=== PATIENT | female | born 1940 | race Caucasian/White ===

== ENCOUNTER 2022-02-26 00:30 | Inpatient (IN) | payer BC, MEDICAID ==
[~2022-02-26] VITALS: Ht 147.3 cm; Wt 39.1 kg
[2022-02-26] VITALS (13 sets, daily range): BP systolic 62–166; BP diastolic 33–100
[2022-02-26] MEDS ORDERED: normal saline 1000ML IV soln IVB ONE (00:45)
[2022-02-26] MEDS ORDERED: acetaminophen 325mg tablet PO ONE (01:35)
[2022-02-26] MEDS ORDERED: piperacillin/tazo 3.375gm/50ml 50 ML IV ONE (01:40)
[2022-02-26 01:49] LABS: BASOPHILS % (AUTO) 0.1 % (0-1); EOSINOPHILS % (AUTO) 0 % (0-6); HEMATOCRIT 35.9 % (35.0-45.0); LYMPHOCYTES # (AUTO) 0.6 X10'3 (1.1-4.8); LYMPHOCYTES % (AUTO) 3.2 % (21-51); MEAN CORPUSCULAR HEMOGLOBIN 29.8 PG (27.0-31.0); MEAN CORPUSCULAR HGB CONC 33.5 g/dL (33.0-36.5); MEAN CORPUSCULAR VOLUME 88.9 FL (78-98); MEAN PLATELET VOLUME 7.6 FL (7.4-10.4); MONOCYTES # (AUTO) 1.5 X10'3 (0-0.9); NEUTROPHILS % (AUTO) 88.7 % (42-75); PLATELET COUNT 227 X10'3 (140-440); RED BLOOD COUNT 4.04 X10'6 (4.20-5.60); RED CELL DISTRIBUTION WIDTH 13.7 % (11.5-14.5); WHITE BLOOD COUNT 19.2 X10'3 (4.5-11.0)
[2022-02-26 01:54] LABS: CLARITY,URINE SLIGHTLY CLOUDY (Clear); COLOR,URINE YELLOW (Yellow); GLUCOSE, URINE NEGATIVE (Neg); KETONES,URINE NEGATIVE (Neg); LEUKOCYTE ESTERASE ,URINE LARGE (Neg); NITRITES, URINE POSITIVE (Neg); OCCULT BLOOD,URINE SMALL (Neg); PROTEIN,URINE NEGATIVE (Neg); UROBILINOGEN,URINE 0.2 E.U/dL (0.2-1.0)
[2022-02-26 01:56] LABS: ALANINE AMINOTRANSFERASE 21 U/L (12-78); ALBUMIN 3.3 G/DL (3.4-5.0); ALBUMIN/GLOBULIN RATIO 0.9 (1.1-1.5); ALKALINE PHOSPHATASE 78 IU/L (46-116); ANION GAP 4 (8-16); ASPARTATE AMINO TRANSFERASE 28 U/L (10-37); BILIRUBIN,TOTAL 0.5 MG/DL (0.1-1.0); BLOOD UREA NITROGEN 17 MG/DL (7-18); CHLORIDE 95 MMOL/L (99-107); CREATININE 0.85 MG/DL (0.40-0.90); GLUCOSE 105 MG/DL (70-104); MAGNESIUM 1.6 MG/DL (1.5-2.4); POTASSIUM 4.6 MMOL/L (3.5-5.1); SODIUM 125 MMOL/L (135-145); TOTAL CARBON DIOXIDE 26.3 MMOL/L (24-32); eGFR 64 ML/MIN
[2022-02-26 02:01] LABS: UA COLLECTION TYPE NON-SPECIFIED
[2022-02-26 02:10] LABS: BACTERIA,URINE 4+ /HPF (Neg); MUCUS STRANDS NONE SEEN /LPF (Neg); RBC,URINE NONE SEEN /HPF (0-2); SQUAMOUS EPITHELIAL CELL,UR FEW /LPF (FEW); WBC,URINE 50-100 /HPF (0-4)
[2022-02-26] MEDS ORDERED: magnesium Cl slow-release 64mg tablet PO PRN (03:05)
[2022-02-26] MEDS ORDERED: ondansetron/PF 4mg/2ml inj IV PRN (03:05)
[2022-02-26] MEDS ORDERED: potassium Cl 40MEQ/1/2NS 520ml 520 ML IV PRN (03:05)
[2022-02-26] MEDS ORDERED: magnesium 4gm in 100ml NS 100 ML IV PRN (03:05)
[2022-02-26] MEDS ORDERED: potassium Cl 20 mEq SR tablet PO PRN ×2 (03:05)
[2022-02-26] MEDS ORDERED: acetaminophen 325mg tablet PO PRN (03:05)
[2022-02-26] MEDS ORDERED: OMEP20CA16 PO (03:46)
[2022-02-26] MEDS ORDERED: ATOR40TA71 PO (03:46)
[2022-02-26] MEDS ORDERED: TIOT4MIS3 INH (03:46)
[2022-02-26] MEDS ORDERED: LISI10TA27 PO (03:46)
[2022-02-26] MEDS ORDERED: ASPI-1144 PO (03:46)
[2022-02-26] MEDS ORDERED: NICO-630 TP (03:46)
[2022-02-26] MEDS ORDERED: CLOP75TA34 PO (03:46)
[2022-02-26] MEDS ORDERED: ALBU6.7H14 IH (03:46)
[2022-02-26] MEDS ORDERED: levoFLOXACIN-Levaquin 500mg/D5 100 ML IV SCH (04:00)
[2022-02-26] MEDS: normal saline 1000ml 1,000 ML IV SCH ×3 (04:36→22:03)
--- NOTE | 2022-02-26 06:45 | NUR ---
Pt arrived from ED with HOTM. Procured new BP cuff and performed recheck. RN to notify auto adjudication specialist .
--- NOTE | 2022-02-26 06:55 | NUR ---
Notified Dr Gutierrez: Debra [id number]. Pt arrived from ED with HOTN (60s/30s). Procured new BP cuff and performed recheck. BP 102/46, MAP 64, HR 87. IVF running at 100ml/hr. Please advise if you would like a bolus. Stephanie Giraldo Addendum: 02/26/22 at 09 by Stephanie Marcelo RN Notified Dr Gutierrez. ALLIE Richardson [id number]. Administered 500ml bolus, now BP 132/66, MAP 80, HR 94 after 1 hour. Saturated brief, no longer oliguric. Stephanie Giraldo Addendum: 02/26/22 at 922 by Stephanie Marcelo RN 922: Debra 23C. Pt tachypnic RR 28, HR 130s, BP 166/84 Map 120. O2 99 on 2.5L. Please advise. Should I call a LOCKSTITCHER? Stephanie [phone] Addendum: 02/26/22 at 1101 by Stephanie Marcelo RN Dr Gutierrez updated on current VS
[2022-02-26] MEDS ORDERED: dextrose 5% water 500ml 500 ML IV ONE (07:35)
[2022-02-26] MEDS ORDERED: normal saline 500ml IV soln 500 ML IV ONE (07:45)
[2022-02-26] MEDS ORDERED: CefTRIAXone/D5W-Rocephin 1gm 50 ML IV SCH (08:00)
[2022-02-26] MEDS: K and/or MAG REPLACEMENT MC SCH ×2 (08:00→20:00)
[2022-02-26 10:42] LABS: BASOPHILS % (AUTO) 0.1 % (0-1); EOSINOPHILS % (AUTO) 0 % (0-6); HEMATOCRIT 33.6 % (35.0-45.0); HEMOGLOBIN 10.6 g/dl (12.0-16.0); LYMPHOCYTES # (AUTO) 0.5 X10'3 (1.1-4.8); LYMPHOCYTES % (AUTO) 2.1 % (21-51); MEAN CORPUSCULAR HEMOGLOBIN 29.3 PG (27.0-31.0); MEAN CORPUSCULAR HGB CONC 31.6 g/dL (33.0-36.5); MEAN CORPUSCULAR VOLUME 92.9 FL (78-98); MEAN PLATELET VOLUME 7.3 FL (7.4-10.4); MONOCYTES # (AUTO) 1.5 X10'3 (0-0.9); MONOCYTES % (AUTO) 6.4 % (2-12); NEUTROPHILS # (AUTO) 21.4 X10'3 (1.8-7.7); NEUTROPHILS % (AUTO) 91.4 % (42-75); PLATELET COUNT 180 X10'3 (140-440); RED BLOOD COUNT 3.62 X10'6 (4.20-5.60); RED CELL DISTRIBUTION WIDTH 14.2 % (11.5-14.5); WHITE BLOOD COUNT 23.4 X10'3 (4.5-11.0)
[2022-02-26 11:05] LABS: ALANINE AMINOTRANSFERASE 19 U/L (12-78); ALBUMIN 2.7 G/DL (3.4-5.0); ALBUMIN/GLOBULIN RATIO 0.8 (1.1-1.5); ALKALINE PHOSPHATASE 58 IU/L (46-116); ANION GAP 11 (8-16); ASPARTATE AMINO TRANSFERASE 28 U/L (10-37); BILIRUBIN,TOTAL 0.6 MG/DL (0.1-1.0); BLOOD UREA NITROGEN 12 MG/DL (7-18); BUN/CREATININE RATIO 16.7 (6.6-38.0); CALCIUM 7.7 MG/DL (8.5-10.1); CHLORIDE 98 MMOL/L (99-107); CREATININE 0.72 MG/DL (0.40-0.90); GLUCOSE 107 MG/DL (70-104); SODIUM 126 MMOL/L (135-145); TOTAL CARBON DIOXIDE 17.2 MMOL/L (24-32); TOTAL PROTEIN 5.9 G/DL (6.4-8.2); eGFR 78 ML/MIN
[2022-02-26 11:32] LABS: HYPERSEGMENTED NEUTROPHILS 2+; PLATELET ESTIMATE NORMAL; TOTAL CELLS COUNTED 100
[2022-02-26 11:33] LABS: ANISOCYTOSIS FEW; BURR CELLS FEW; ELLIPTOCYTES FEW
--- NOTE | 2022-02-26 13:17 | NUR ---
Initial: Pt admit DX sepsis, UTI, hyponatremia, and metabolic encephalopathy per EMR. Pt NPO pending DRAWING OPERATOR BSS this admit. Noted BMI 18.0 though pending scaled wt this admit w/ no prior wt hx or physical assessment at this time. Serum Na 126mmol/L up from 125 on admit receiving NS per EMR; would benefit from advancing to regular diet once PO given serum Na and episodes of hypotension per EMR. Will monitor for further malnutrition criteria and nutrition intervention needs this admit. Rec: 1. advance diet per DRAWING OPERATOR/MD recs to regular; serum Na 126 mmol/L w/ episodes of hypotension on IV NS per EMR 2. monitor for diet advancement and PO acceptance for ONS needs 3. routine bowel care 4. scaled wt this admit; subsequent weekly wts Addendum: 02/26/22 at [address] Amended: Links added.
--- NOTE | 2022-02-26 16:31 | NUR ---
Notified Dr Gutierrez: Debra 23C. FYI Blood cultures positive at 12.5 hours Anaerobic Gram Negative Rods. Stephanie [phone] Addendum: 02/26/22 at 1654 by Stephanie Marcelo RN Called Darlene [phone] and answered phone stating "there is no Darlene at this number" and call was disconnected. This RN contacted Dr Gutierrez. This RN also attempted to reach [facility] to reach a sales donor recruitment representative that might have additional contact/ emergency numbers on file for pt; [facility] was after business hours and gear hobber set up operator not available.
[2022-02-26] MEDS ORDERED: albuterol 2.5 MG/3 ML nebule NEB PRN (16:50)
[2022-02-27 02:00] VITALS: BP 159/65
[2022-02-27 07:00] VITALS: BP 163/62
[2022-02-27 07:17] LABS: BASOPHILS % (AUTO) 0.2 % (0-1); EOSINOPHILS % (AUTO) 0 % (0-6); HEMATOCRIT 40.6 % (35.0-45.0); HEMOGLOBIN 12.6 g/dl (12.0-16.0); LYMPHOCYTES # (AUTO) 0.9 X10'3 (1.1-4.8); LYMPHOCYTES % (AUTO) 5.9 % (21-51); MEAN CORPUSCULAR HEMOGLOBIN 29.6 PG (27.0-31.0); MEAN CORPUSCULAR VOLUME 95.6 FL (78-98); MEAN PLATELET VOLUME 7.6 FL (7.4-10.4); MONOCYTES # (AUTO) 1.8 X10'3 (0-0.9); MONOCYTES % (AUTO) 11.3 % (2-12); NEUTROPHILS # (AUTO) 13.2 X10'3 (1.8-7.7); NEUTROPHILS % (AUTO) 82.6 % (42-75); PLATELET COUNT 151 X10'3 (140-440); RED BLOOD COUNT 4.24 X10'6 (4.20-5.60)
[2022-02-27] MEDS: K and/or MAG REPLACEMENT MC SCH ×2 (08:00→20:00)
[2022-02-27] MEDS ORDERED: (Tiotropium Br/Olodaterol HCl (Stiolto Respimat Inhal Spray) 2 PUFFS) IH SCH (08:00)
[2022-02-27] MEDS: normal saline 1000ml 1,000 ML IV SCH ×2 (09:05→17:14)
[2022-02-27 09:27] LABS: ALBUMIN 3.2 G/DL (3.4-5.0); ANION GAP 15 (8-16); BLOOD UREA NITROGEN 9 MG/DL (7-18); BUN/CREATININE RATIO 12.3 (6.6-38.0); CALCIUM 8.8 MG/DL (8.5-10.1); CHLORIDE 100 MMOL/L (99-107); CREATININE 0.73 MG/DL (0.40-0.90); GLUCOSE 56 MG/DL (70-104); POTASSIUM 3.6 MMOL/L (3.5-5.1); SODIUM 132 MMOL/L (135-145); TOTAL CARBON DIOXIDE 16.8 MMOL/L (24-32); eGFR 77 ML/MIN
[2022-02-27] MEDS: piperacillin/tazo 3.375gm/50ml 50 ML IV SCH ×3 (09:54→23:43)
[2022-02-27] MEDS: atorvastatin 20mg tablet PO SCH (09:55)
[2022-02-27] MEDS: clopidogrel 75mg tablet PO SCH (09:55)
[2022-02-27] MEDS: levoFLOXACIN-Levaquin 250mg/D5 50 ML IV SCH (09:55)
[2022-02-27] MEDS: aspirin 81mg tab.chew PO SCH (09:55)
[2022-02-27] MEDS ORDERED: LIDOcaine 2% 10ml TOPICAL JELLY (Urojet) TP ONE (10:50)
--- NOTE | 2022-02-27 10:54 | NUR ---
Paged [facility] RN: Debra 3023C. Please start IV, lost access, any gauge is okay. Stephanie [phone] Addendum: 02/27/22 at 1155 by Stephanie Marcelo RN 1155: Paged Dr Neff: Debra Kothari [id number]. Unable to reach family/caregiver for home med Stiolto 2U. Had to cancel per pharmacy non-formulary. Do you have replacement order? Stephanie [phone] Addendum: 02/27/22 at 1449 by Stephanie Marcelo RN Scanner broken, unable to scan meds appropriately.
[2022-02-27 13:20] VITALS: BP 120/45
[2022-02-27 18:00] VITALS: BP 135/63
[2022-02-28 02:00] VITALS: BP 110/50
[2022-02-28] MEDS: normal saline 1000ml 1,000 ML IV SCH ×2 (05:05→15:05)
[2022-02-28 06:00] VITALS: BP 143/98
--- NOTE | 2022-02-28 06:30 | NUR ---
Patient in room PCU 3023C. I have received report from Ally AZEVEDO and had the opportunity to ask questions and assume patient care.
[2022-02-28 07:04] LABS: HEMATOCRIT 31.6 % (35.0-45.0); HEMOGLOBIN 10.9 g/dl (12.0-16.0); MEAN CORPUSCULAR HEMOGLOBIN 30.6 PG (27.0-31.0); MEAN CORPUSCULAR VOLUME 88.6 FL (78-98); RED BLOOD COUNT 3.56 X10'6 (4.20-5.60); WHITE BLOOD COUNT 9.1 X10'3 (4.5-11.0)
[2022-02-28 07:05] LABS: BASOPHILS % (AUTO) 0.3 % (0-1); EOSINOPHILS % (AUTO) 0.3 % (0-6); MEAN CORPUSCULAR HGB CONC 34.5 g/dL (33.0-36.5); MEAN PLATELET VOLUME 7.5 FL (7.4-10.4); MONOCYTES # (AUTO) 1.3 X10'3 (0-0.9); MONOCYTES % (AUTO) 14.1 % (2-12); NEUTROPHILS # (AUTO) 6.8 X10'3 (1.8-7.7); NEUTROPHILS % (AUTO) 74.3 % (42-75); PLATELET COUNT 166 X10'3 (140-440); RED CELL DISTRIBUTION WIDTH 13.7 % (11.5-14.5)
[2022-02-28] MEDS: K and/or MAG REPLACEMENT MC SCH ×2 (08:00→19:36)
[2022-02-28 08:11] LABS: ALBUMIN 2.7 G/DL (3.4-5.0); ANION GAP 6 (8-16); BLOOD UREA NITROGEN 10 MG/DL (7-18); BUN/CREATININE RATIO 12.3 (6.6-38.0); CALCIUM 8.1 MG/DL (8.5-10.1); CHLORIDE 100 MMOL/L (99-107); CREATININE 0.81 MG/DL (0.40-0.90); GLUCOSE 106 MG/DL (70-104); POTASSIUM 3.1 MMOL/L (3.5-5.1); SODIUM 132 MMOL/L (135-145); TOTAL CARBON DIOXIDE 25.6 MMOL/L (24-32); eGFR 68 ML/MIN
--- NOTE | 2022-02-28 09:29 | NUR ---
Taco Consult: Taco Bernardo w/ skin intact per EMR. Addendum: 02/28/22 at [address] Amended: Links added.
[2022-02-28] MEDS: aspirin 81mg tab.chew PO SCH (09:40)
[2022-02-28] MEDS: atorvastatin 20mg tablet PO SCH (09:40)
[2022-02-28] MEDS: levoFLOXACIN-Levaquin 250mg/D5 50 ML IV SCH (09:41)
[2022-02-28] MEDS: clopidogrel 75mg tablet PO SCH (09:41)
[2022-02-28 11:00] VITALS: BP 141/68
[2022-02-28] MEDS: piperacillin/tazo 3.375gm/50ml 50 ML IV SCH ×2 (11:03→16:42)
[2022-02-28 15:00] VITALS: BP 141/53
[2022-02-28 18:00] VITALS: BP 160/65
--- NOTE | 2022-02-28 18:31 | NUR ---
Problems reprioritized. Patient report given, questions answered & plan of care reviewed with Edgar AZEVEDO.
[2022-02-28 23:02] VITALS: BP 149/56
[2022-03-01] MEDS: normal saline 1000ml 1,000 ML IV SCH ×3 (00:35→15:25)
[2022-03-01] MEDS: piperacillin/tazo 3.375gm/50ml 50 ML IV SCH ×2 (00:35→07:58)
[2022-03-01 02:08] VITALS: BP 137/61
[2022-03-01 06:00] VITALS: BP 155/61
[2022-03-01 06:31] LABS: BASOPHILS % (AUTO) 0.5 % (0-1); EOSINOPHILS # (AUTO) 0.2 X10'3 (0-0.9); EOSINOPHILS % (AUTO) 1.8 % (0-6); HEMATOCRIT 33.6 % (35.0-45.0); HEMOGLOBIN 11.3 g/dl (12.0-16.0); LYMPHOCYTES # (AUTO) 1.6 X10'3 (1.1-4.8); LYMPHOCYTES % (AUTO) 16.6 % (21-51); MEAN CORPUSCULAR HEMOGLOBIN 30.3 PG (27.0-31.0); MEAN CORPUSCULAR HGB CONC 33.7 g/dL (33.0-36.5); MEAN CORPUSCULAR VOLUME 89.8 FL (78-98); MEAN PLATELET VOLUME 7.6 FL (7.4-10.4); MONOCYTES # (AUTO) 1.7 X10'3 (0-0.9); MONOCYTES % (AUTO) 16.9 % (2-12); NEUTROPHILS # (AUTO) 6.3 X10'3 (1.8-7.7); NEUTROPHILS % (AUTO) 64.2 % (42-75); PLATELET COUNT 170 X10'3 (140-440); RED BLOOD COUNT 3.74 X10'6 (4.20-5.60); RED CELL DISTRIBUTION WIDTH 13.7 % (11.5-14.5); WHITE BLOOD COUNT 9.9 X10'3 (4.5-11.0)
--- NOTE | 2022-03-01 06:31 | NUR ---
Patient in room PCU 3023. I have received report from Edgar AZEVEDO and had the opportunity to ask questions and assume patient care. Bedside report completed. Pt sleeping, No distress, Call light in reach. Addendum: 03/01/22 at 0632 by Maya Ambrocio RN Amended: Links added.
[2022-03-01 06:49] LABS: ALANINE AMINOTRANSFERASE 45 U/L (12-78); ALBUMIN 2.4 G/DL (3.4-5.0); ALBUMIN/GLOBULIN RATIO 0.7 (1.1-1.5); ALKALINE PHOSPHATASE 59 IU/L (46-116); ANION GAP 6 (8-16); ASPARTATE AMINO TRANSFERASE 55 U/L (10-37); BILIRUBIN,TOTAL 0.3 MG/DL (0.1-1.0); BLOOD UREA NITROGEN 6 MG/DL (7-18); BUN/CREATININE RATIO 7.7 (6.6-38.0); CALCIUM 7.7 MG/DL (8.5-10.1); CHLORIDE 103 MMOL/L (99-107); CREATININE 0.78 MG/DL (0.40-0.90); GLUCOSE 90 MG/DL (70-104); MAGNESIUM 1.6 MG/DL (1.5-2.4); PHOSPHORUS 2.1 MG/DL (2.3-4.5); SODIUM 134 MMOL/L (135-145); TOTAL CARBON DIOXIDE 24.6 MMOL/L (24-32); TOTAL PROTEIN 5.7 G/DL (6.4-8.2); eGFR 71 ML/MIN
--- NOTE | 2022-03-01 07:04 | NUR ---
essage: 3023C [facility]. K+ 3.0. Will replace per protocol. Maya LIU
[2022-03-01] MEDS ORDERED: magnesium 4gm in 100ml NS 100 ML IV PRN (07:10)
[2022-03-01] MEDS ORDERED: potassium Cl 20 mEq SR tablet PO PRN (07:10)
[2022-03-01] MEDS ORDERED: potassium Cl 40MEQ/1/2NS 520ml 520 ML IV PRN (07:10)
[2022-03-01] MEDS ORDERED: magnesium Cl slow-release 64mg tablet PO PRN (07:10)
[2022-03-01] MEDS: potassium Cl 20 mEq SR tablet PO PRN ×3 (07:59→17:23)
[2022-03-01] MEDS: clopidogrel 75mg tablet PO SCH (07:59)
[2022-03-01] MEDS: levoFLOXACIN-Levaquin 250mg/D5 50 ML IV SCH (07:59)
[2022-03-01] MEDS: atorvastatin 20mg tablet PO SCH (07:59)
[2022-03-01] MEDS: aspirin 81mg tab.chew PO SCH (07:59)
[2022-03-01] MEDS: K and/or MAG REPLACEMENT MC SCH ×2 (08:00→19:06)
--- NOTE | 2022-03-01 09:42 | NUR ---
Reassessment: Pt s/p BSS with ST recs pureed food with thin liquids d/t difficulty chewing. PO intake slightly fluctuates however overall pt eating well, documented with average 58% PO intake of 5 meals which meets 100% estimated energy needs and 82% estimated protein needs. Since diet was advanced pt documented to have refused one meal and only with 100% PO intake of milk at breakfast this morning however documented to have consumed 49 g CHO so pt likely ate more. Pt receiving assistance with meals per EMR. LBM 02/26, not receiving bowel care. Unable to send nutrition intervention to assist with bowel regularity at this time d/t prune juice currently out of stock and other options not appropriate in view of texture modification. Will continue to follow. Recommendations: 1. Continue pureed diet with thin liquids per ST recs; advance to regular diet as appropriate; assist with meals 2. Monitor need for ONS 3. Routine bowel care 4. Scaled wt this admit; subsequent weekly scaled wts Addendum: 03/01/22 at [address] Amended: Links added.
[2022-03-01 10:36] LABS: NUCLEATED RED BLOOD CELLS 3 /100WBC (0-0); PLATELET ESTIMATE NORMAL; TOTAL CELLS COUNTED 100
[2022-03-01 10:53] VITALS: BP 145/60
[2022-03-01] MEDS: meropenem inj 500 MG in normal saline 100ml IV soln 100 ML IV SCH ×2 (14:35→19:31)
[2022-03-01 15:45] VITALS: BP 121/62
[2022-03-01 18:00] VITALS: BP 151/91
--- NOTE | 2022-03-01 18:12 | NUR ---
Problems reprioritized. Patient report given, questions answered & plan of care reviewed with Edgar AZEVEDO. Bedside report completed. Pt relaxing eating dinner. Addendum: 03/01/22 at 1813 by Maya Ambrocio RN Amended: Links added.
[2022-03-01] MEDS ORDERED: furosemide 40mg/4ml inj IV ONE (21:25)
[2022-03-01 22:39] VITALS: BP 189/82
[2022-03-01] MEDS ORDERED: hydrALAZINE 20mg/ml inj. IV ONE (23:35)
[2022-03-02] VITALS (8 sets, daily range): BP systolic 112–192; BP diastolic 53–68
[2022-03-02] MEDS: meropenem inj 500 MG in normal saline 100ml IV soln 100 ML IV SCH ×3 (02:18→19:04)
[2022-03-02 05:42] LABS: BASOPHILS # (AUTO) 0.1 X10'3 (0-0.2); BASOPHILS % (AUTO) 0.6 % (0-1); EOSINOPHILS # (AUTO) 0.1 X10'3 (0-0.9); EOSINOPHILS % (AUTO) 0.9 % (0-6); HEMATOCRIT 36.8 % (35.0-45.0); HEMOGLOBIN 12.3 g/dl (12.0-16.0); LYMPHOCYTES % (AUTO) 18.7 % (21-51); MEAN CORPUSCULAR HEMOGLOBIN 29.6 PG (27.0-31.0); MEAN CORPUSCULAR HGB CONC 33.4 g/dL (33.0-36.5); MEAN CORPUSCULAR VOLUME 88.7 FL (78-98); MEAN PLATELET VOLUME 7.2 FL (7.4-10.4); MONOCYTES # (AUTO) 1.6 X10'3 (0-0.9); MONOCYTES % (AUTO) 15.1 % (2-12); NEUTROPHILS # (AUTO) 6.8 X10'3 (1.8-7.7); NEUTROPHILS % (AUTO) 64.7 % (42-75); PLATELET COUNT 221 X10'3 (140-440); RED BLOOD COUNT 4.15 X10'6 (4.20-5.60); RED CELL DISTRIBUTION WIDTH 13.7 % (11.5-14.5); WHITE BLOOD COUNT 10.6 X10'3 (4.5-11.0)
[2022-03-02 05:49] LABS: ALANINE AMINOTRANSFERASE 48 U/L (12-78); ALBUMIN 2.8 G/DL (3.4-5.0); ALBUMIN/GLOBULIN RATIO 0.7 (1.1-1.5); ALKALINE PHOSPHATASE 61 IU/L (46-116); ANION GAP 8 (8-16); ASPARTATE AMINO TRANSFERASE 44 U/L (10-37); BILIRUBIN,TOTAL 0.3 MG/DL (0.1-1.0); BLOOD UREA NITROGEN 8 MG/DL (7-18); BUN/CREATININE RATIO 9.4 (6.6-38.0); CALCIUM 9.1 MG/DL (8.5-10.1); CHLORIDE 101 MMOL/L (99-107); CREATININE 0.85 MG/DL (0.40-0.90); GLUCOSE 98 MG/DL (70-104); MAGNESIUM 1.7 MG/DL (1.5-2.4); PHOSPHORUS 2.2 MG/DL (2.3-4.5); POTASSIUM 4.1 MMOL/L (3.5-5.1); SODIUM 137 MMOL/L (135-145); TOTAL CARBON DIOXIDE 28.3 MMOL/L (24-32); TOTAL PROTEIN 6.6 G/DL (6.4-8.2); eGFR 64 ML/MIN
--- NOTE | 2022-03-02 06:25 | NUR ---
Patient in room PCU 3011. I have received report from Edgar AZEVEDO and had the opportunity to ask questions and assume patient care.Bedside report completed. Pt sleeping, No distress. Addendum: 03/02/22 at 0626 by Maya Ambrocio RN Amended: Links added.
[2022-03-02 06:45] LABS: PLATELET ESTIMATE NORMAL; TOTAL CELLS COUNTED 100
[2022-03-02] MEDS: K and/or MAG REPLACEMENT MC SCH ×2 (08:00→19:02)
[2022-03-02] MEDS: clopidogrel 75mg tablet PO SCH (08:10)
[2022-03-02] MEDS: atorvastatin 20mg tablet PO SCH (08:10)
[2022-03-02] MEDS: aspirin 81mg tab.chew PO SCH (08:10)
--- NOTE | 2022-03-02 18:07 | NUR ---
Problems reprioritized. Patient report given, questions answered & plan of care reviewed with Edgar AZEVEDO. bedside report completed.Pt eating dinner. Denies needs, call light in reach. Addendum: 03/02/22 at 1808 by Maya Ambrocio RN Amended: Links added.
[2022-03-02] MEDS: Melatonin 3mg tablet PO SCH (21:07)
--- NOTE | 2022-03-02 22:21 | NUR ---
MD Lang notified by phone that patient had a blood pressure of 192/68 and a heart rate of 82 beats per minute. wanted to restart the patient's home dose of lisinopril. RN will continue to monitor.
[2022-03-02] MEDS: lisinopril 10 MG tablet PO SCH (22:34)
[2022-03-03 01:10] VITALS: BP 95/56
[2022-03-03] MEDS ORDERED: hydrALAZINE 20mg/ml inj. IV ONE (05:55)
--- NOTE | 2022-03-03 06:28 | NUR ---
Patient in room PCU 3011. I have received report from Edgar AZEVEOD and had the opportunity to ask questions and assume patient care.bedside report completed. Pt sleeping, Call light in reach. Will continue to watch BP. Addendum: 03/03/22 at 0629 by Maya Ambrocio RN Amended: Links added.
[2022-03-03 06:30] VITALS: BP 120/59
[2022-03-03] MEDS: aspirin 81mg tab.chew PO SCH (07:59)
[2022-03-03] MEDS: lisinopril 10 MG tablet PO SCH (08:00)
[2022-03-03] MEDS: clopidogrel 75mg tablet PO SCH (08:00)
[2022-03-03] MEDS: K and/or MAG REPLACEMENT MC SCH ×2 (08:00→19:03)
[2022-03-03] MEDS: atorvastatin 20mg tablet PO SCH (08:03)
[2022-03-03] MEDS: meropenem inj 500 MG in normal saline 100ml IV soln 100 ML IV SCH ×2 (08:06→19:14)
[2022-03-03 10:10] LABS: BASOPHILS # (AUTO) 0.1 X10'3 (0-0.2); BASOPHILS % (AUTO) 0.4 % (0-1); EOSINOPHILS # (AUTO) 0.4 X10'3 (0-0.9); EOSINOPHILS % (AUTO) 2.7 % (0-6); HEMATOCRIT 37.1 % (35.0-45.0); HEMOGLOBIN 12.4 g/dl (12.0-16.0); LYMPHOCYTES # (AUTO) 1.8 X10'3 (1.1-4.8); LYMPHOCYTES % (AUTO) 12.7 % (21-51); MEAN CORPUSCULAR HEMOGLOBIN 29.5 PG (27.0-31.0); MEAN CORPUSCULAR HGB CONC 33.4 g/dL (33.0-36.5); MEAN CORPUSCULAR VOLUME 88.4 FL (78-98); MEAN PLATELET VOLUME 7.3 FL (7.4-10.4); MONOCYTES # (AUTO) 2.3 X10'3 (0-0.9); MONOCYTES % (AUTO) 16.7 % (2-12); NEUTROPHILS # (AUTO) 9.4 X10'3 (1.8-7.7); NEUTROPHILS % (AUTO) 67.5 % (42-75); PLATELET COUNT 198 X10'3 (140-440); RED CELL DISTRIBUTION WIDTH 13.7 % (11.5-14.5)
[2022-03-03 10:22] LABS: ALANINE AMINOTRANSFERASE 43 U/L (12-78); ALBUMIN 2.7 G/DL (3.4-5.0); ALBUMIN/GLOBULIN RATIO 0.8 (1.1-1.5); ALKALINE PHOSPHATASE 58 IU/L (46-116); ANION GAP 6 (8-16); ASPARTATE AMINO TRANSFERASE 43 U/L (10-37); BILIRUBIN,TOTAL 0.3 MG/DL (0.1-1.0); BLOOD UREA NITROGEN 5 MG/DL (7-18); BUN/CREATININE RATIO 6.5 (6.6-38.0); CALCIUM 8.8 MG/DL (8.5-10.1); CHLORIDE 96 MMOL/L (99-107); CREATININE 0.77 MG/DL (0.40-0.90); GLUCOSE 119 MG/DL (70-104); MAGNESIUM 1.7 MG/DL (1.5-2.4); PHOSPHORUS 2.7 MG/DL (2.3-4.5); POTASSIUM 3.5 MMOL/L (3.5-5.1); SODIUM 132 MMOL/L (135-145); TOTAL CARBON DIOXIDE 29.6 MMOL/L (24-32); TOTAL PROTEIN 6.3 G/DL (6.4-8.2); eGFR 72 ML/MIN
[2022-03-03] MEDS ORDERED: iohexol 300mg/ml 100ml inj. ONE (10:38)
[2022-03-03 12:06] VITALS: BP 92/59
[2022-03-03 15:00] VITALS: BP 112/72
[2022-03-03 18:00] VITALS: BP 132/66
--- NOTE | 2022-03-03 18:03 | NUR ---
Problems reprioritized. Patient report given, questions answered & plan of care reviewed with Edgar AZEVEDO. Bedside report completed. Pt eating dinner. no distress. call light in reach. Addendum: 03/03/22 at 1804 by Maya Ambrocio RN Amended: Links added.
[2022-03-03] MEDS: Melatonin 3mg tablet PO SCH (20:11)
[2022-03-03 22:06] VITALS: BP 109/61
[2022-03-04 02:35] VITALS: BP 125/50
[2022-03-04 06:00] VITALS: BP 140/68
--- NOTE | 2022-03-04 06:05 | NUR ---
received report from dalia little
[2022-03-04 06:56] LABS: ALANINE AMINOTRANSFERASE 40 U/L (12-78); ALBUMIN 2.7 G/DL (3.4-5.0); ALBUMIN/GLOBULIN RATIO 0.8 (1.1-1.5); ALKALINE PHOSPHATASE 87 IU/L (46-116); ANION GAP 4 (8-16); ASPARTATE AMINO TRANSFERASE 38 U/L (10-37); BILIRUBIN,TOTAL 0.3 MG/DL (0.1-1.0); BLOOD UREA NITROGEN 7 MG/DL (7-18); BUN/CREATININE RATIO 8.8 (6.6-38.0); CALCIUM 8.9 MG/DL (8.5-10.1); CHLORIDE 94 MMOL/L (99-107); GLUCOSE 87 MG/DL (70-104); POTASSIUM 4.1 MMOL/L (3.5-5.1); SODIUM 128 MMOL/L (135-145); TOTAL CARBON DIOXIDE 29.7 MMOL/L (24-32); TOTAL PROTEIN 6.3 G/DL (6.4-8.2); eGFR 69 ML/MIN
[2022-03-04] MEDS: meropenem inj 500 MG in normal saline 100ml IV soln 100 ML IV SCH ×2 (07:15→23:04)
[2022-03-04] MEDS: K and/or MAG REPLACEMENT MC SCH ×2 (07:18→20:00)
[2022-03-04] MEDS: aspirin 81mg tab.chew PO SCH (08:11)
[2022-03-04] MEDS: clopidogrel 75mg tablet PO SCH (08:12)
[2022-03-04] MEDS: atorvastatin 20mg tablet PO SCH (08:13)
[2022-03-04] MEDS: lisinopril 10 MG tablet PO SCH (08:14)
[2022-03-04 10:30] VITALS: BP 120/90
--- NOTE | 2022-03-04 15:00 | NUR ---
PT IS REFUSING TO HAVE HER VITAL SIGNS TAKEN AT THIS TIME, PT IS COMPLAINING THAT THE CUFF IS TOO TIGHT ON HER LEG THEREFORE, PT IS REFUSING, CONTINUE TO EDUCATE AND TO MONITOR
--- NOTE | 2022-03-04 18:24 | NUR ---
GAVE REPORT TO JOLLY HAMMOND
[2022-03-04] MEDS: Melatonin 3mg tablet PO SCH (23:04)
[2022-03-05 06:00] VITALS: BP_SYST 116; BP_SYST 124; BP_DIAS 62; BP_DIAS 79
--- NOTE | 2022-03-05 06:15 | NUR ---
received report from dalia savage
[2022-03-05] MEDS: atorvastatin 20mg tablet PO SCH (07:50)
[2022-03-05] MEDS: lisinopril 10 MG tablet PO SCH (07:50)
[2022-03-05] MEDS: aspirin 81mg tab.chew PO SCH (07:50)
[2022-03-05] MEDS: clopidogrel 75mg tablet PO SCH (07:50)
[2022-03-05 07:52] LABS: BASOPHILS # (AUTO) 0.1 X10'3 (0-0.2); BASOPHILS % (AUTO) 0.7 % (0-1); EOSINOPHILS # (AUTO) 0.5 X10'3 (0-0.9); EOSINOPHILS % (AUTO) 3.4 % (0-6); HEMATOCRIT 36.8 % (35.0-45.0); HEMOGLOBIN 12.2 g/dl (12.0-16.0); LYMPHOCYTES # (AUTO) 2.8 X10'3 (1.1-4.8); MEAN CORPUSCULAR HEMOGLOBIN 29.3 PG (27.0-31.0); MEAN CORPUSCULAR HGB CONC 33.2 g/dL (33.0-36.5); MEAN CORPUSCULAR VOLUME 88.3 FL (78-98); MEAN PLATELET VOLUME 7.4 FL (7.4-10.4); MONOCYTES # (AUTO) 1.7 X10'3 (0-0.9); MONOCYTES % (AUTO) 11.3 % (2-12); NEUTROPHILS # (AUTO) 9.7 X10'3 (1.8-7.7); NEUTROPHILS % (AUTO) 65.6 % (42-75); PLATELET COUNT 234 X10'3 (140-440); RED BLOOD COUNT 4.17 X10'6 (4.20-5.60); RED CELL DISTRIBUTION WIDTH 13.4 % (11.5-14.5); WHITE BLOOD COUNT 14.7 X10'3 (4.5-11.0)
[2022-03-05] MEDS: meropenem inj 500 MG in normal saline 100ml IV soln 100 ML IV SCH ×2 (07:57→20:46)
[2022-03-05] MEDS: K and/or MAG REPLACEMENT MC SCH ×2 (08:00→20:00)
[2022-03-05 09:02] LABS: ALANINE AMINOTRANSFERASE 32 U/L (12-78); ALBUMIN 2.8 G/DL (3.4-5.0); ALBUMIN/GLOBULIN RATIO 0.8 (1.1-1.5); ALKALINE PHOSPHATASE 72 IU/L (46-116); ANION GAP 5 (8-16); ASPARTATE AMINO TRANSFERASE 26 U/L (10-37); BILIRUBIN,TOTAL 0.5 MG/DL (0.1-1.0); BLOOD UREA NITROGEN 8 MG/DL (7-18); BUN/CREATININE RATIO 9.3 (6.6-38.0); CALCIUM 8.4 MG/DL (8.5-10.1); CHLORIDE 95 MMOL/L (99-107); CREATININE 0.86 MG/DL (0.40-0.90); GLUCOSE 88 MG/DL (70-104); MAGNESIUM 1.8 MG/DL (1.5-2.4); PHOSPHORUS 3.6 MG/DL (2.3-4.5); POTASSIUM 3.7 MMOL/L (3.5-5.1); SODIUM 130 MMOL/L (135-145); TOTAL CARBON DIOXIDE 30.1 MMOL/L (24-32); TOTAL PROTEIN 6.4 G/DL (6.4-8.2); eGFR 63 ML/MIN
--- NOTE | 2022-03-05 10:30 | NUR ---
pt is refusing her vital signs at this time
--- NOTE | 2022-03-05 14:30 | NUR ---
pt is refusing her vital signs at this time, continue to educate pt about the importance of obtaining vital signs
[2022-03-05 18:00] VITALS: BP 130/68
--- NOTE | 2022-03-05 18:30 | NUR ---
gave report to dalia mukherjee
[2022-03-05] MEDS: Melatonin 3mg tablet PO SCH (20:48)
[2022-03-05 22:00] VITALS: BP 149/62
[2022-03-06 02:00] VITALS: BP 138/56
--- NOTE | 2022-03-06 06:25 | NUR ---
Problems reprioritized. Patient report given, questions answered & plan of care reviewed with Kaela AZEVEDO
--- NOTE | 2022-03-06 06:53 | NUR ---
Patient in room PCU 3011. I have received report from Manuela AZEVEDO and had the opportunity to ask questions and assume patient care.
[2022-03-06 07:00] VITALS: BP 104/80
[2022-03-06] MEDS: meropenem inj 500 MG in normal saline 100ml IV soln 100 ML IV SCH ×2 (07:23→20:14)
[2022-03-06] MEDS: K and/or MAG REPLACEMENT MC SCH ×2 (08:00→20:00)
[2022-03-06] MEDS: atorvastatin 20mg tablet PO SCH (08:48)
[2022-03-06] MEDS: clopidogrel 75mg tablet PO SCH (08:50)
[2022-03-06] MEDS: lisinopril 10 MG tablet PO SCH (08:50)
[2022-03-06] MEDS: aspirin 81mg tab.chew PO SCH (08:50)
[2022-03-06 09:37] LABS: BASOPHILS # (AUTO) 0.1 X10'3 (0-0.2); BASOPHILS % (AUTO) 0.6 % (0-1); EOSINOPHILS # (AUTO) 0.2 X10'3 (0-0.9); EOSINOPHILS % (AUTO) 1.4 % (0-6); HEMATOCRIT 39.2 % (35.0-45.0); HEMOGLOBIN 12.5 g/dl (12.0-16.0); LYMPHOCYTES # (AUTO) 2.1 X10'3 (1.1-4.8); LYMPHOCYTES % (AUTO) 15.1 % (21-51); MEAN CORPUSCULAR HEMOGLOBIN 29.1 PG (27.0-31.0); MEAN CORPUSCULAR VOLUME 90.9 FL (78-98); MEAN PLATELET VOLUME 7.4 FL (7.4-10.4); MONOCYTES # (AUTO) 1.4 X10'3 (0-0.9); NEUTROPHILS # (AUTO) 10.2 X10'3 (1.8-7.7); NEUTROPHILS % (AUTO) 72.9 % (42-75); PLATELET COUNT 212 X10'3 (140-440); RED BLOOD COUNT 4.31 X10'6 (4.20-5.60)
[2022-03-06 09:59] LABS: ALANINE AMINOTRANSFERASE 27 U/L (12-78); ALBUMIN 2.9 G/DL (3.4-5.0); ALBUMIN/GLOBULIN RATIO 0.8 (1.1-1.5); ALKALINE PHOSPHATASE 75 IU/L (46-116); ANION GAP 7 (8-16); ASPARTATE AMINO TRANSFERASE 26 U/L (10-37); BILIRUBIN,TOTAL 0.5 MG/DL (0.1-1.0); BLOOD UREA NITROGEN 6 MG/DL (7-18); BUN/CREATININE RATIO 6.4 (6.6-38.0); CALCIUM 8.4 MG/DL (8.5-10.1); CHLORIDE 95 MMOL/L (99-107); CREATININE 0.94 MG/DL (0.40-0.90); GLUCOSE 129 MG/DL (70-104); MAGNESIUM 2.3 MG/DL (1.5-2.4); PHOSPHORUS 3.1 MG/DL (2.3-4.5); POTASSIUM 4.1 MMOL/L (3.5-5.1); SODIUM 129 MMOL/L (135-145); TOTAL CARBON DIOXIDE 26.6 MMOL/L (24-32); TOTAL PROTEIN 6.6 G/DL (6.4-8.2); eGFR 57 ML/MIN
[2022-03-06 10:16] VITALS: BP 129/86
--- NOTE | 2022-03-06 14:05 | NUR ---
Reassessment: Pt continues on pureed diet with thin liquids per ST recs and PO intake has declined since last RD assessment (03/01), documented down to 25-50% PO intake not fully meeting estimated nutrient needs. Recommend Ensure Plus BID to assist with meeting estimated nutrient needs, to be sent pending physician approval in EMR. Pt documented as A/O x 2 and confused, receiving minimal assistance with meals per EMR. LB 03/05. Will continue to follow closely and monitor need for further nutrition intervention. Recommendations: 1. Continue pureed diet with thin liquids per ST recs; advance to regular diet as appropriate; assist with meals 2. Ensure Plus HP BIDBD, pending physician approval in EMR 3. Routine bowel care 4. Scaled wt this admit; subsequent weekly scaled wts Addendum: 03/06/22 at [address] Amended: Links added.
[2022-03-06] MEDS ORDERED: LACTOSE-REDUCED FOOD 237ML LIQUID PO SCH (17:30)
[2022-03-06 18:00] VITALS: BP 120/58
--- NOTE | 2022-03-06 18:23 | NUR ---
Problems reprioritized. Patient report given, questions answered & plan of care reviewed with Manuela AZEVEDO.
[2022-03-06] MEDS: Melatonin 3mg tablet PO SCH (20:14)
[2022-03-06 22:00] VITALS: BP 114/50
[2022-03-07 02:00] VITALS: BP 120/50
--- NOTE | 2022-03-07 06:18 | NUR ---
Problems reprioritized. Patient report given, questions answered & plan of care reviewed with Kaela AZEVEDO.
--- NOTE | 2022-03-07 06:30 | NUR ---
Patient in room PCU 3011. I have received report from Manuela AZEVEDO and had the opportunity to ask questions and assume patient care.
[2022-03-07 07:00] VITALS: BP 158/65
[2022-03-07 07:29] LABS: BASOPHILS # (AUTO) 0.1 X10'3 (0-0.2); BASOPHILS % (AUTO) 0.6 % (0-1); EOSINOPHILS # (AUTO) 0.3 X10'3 (0-0.9); EOSINOPHILS % (AUTO) 2.6 % (0-6); HEMATOCRIT 35.1 % (35.0-45.0); HEMOGLOBIN 11.8 g/dl (12.0-16.0); LYMPHOCYTES # (AUTO) 2.3 X10'3 (1.1-4.8); MEAN CORPUSCULAR HEMOGLOBIN 29.6 PG (27.0-31.0); MEAN CORPUSCULAR HGB CONC 33.7 g/dL (33.0-36.5); MEAN CORPUSCULAR VOLUME 87.8 FL (78-98); MEAN PLATELET VOLUME 7.6 FL (7.4-10.4); MONOCYTES # (AUTO) 1.6 X10'3 (0-0.9); MONOCYTES % (AUTO) 13.2 % (2-12); NEUTROPHILS # (AUTO) 7.9 X10'3 (1.8-7.7); NEUTROPHILS % (AUTO) 64.6 % (42-75); PLATELET COUNT 229 X10'3 (140-440); RED CELL DISTRIBUTION WIDTH 13.6 % (11.5-14.5); WHITE BLOOD COUNT 12.2 X10'3 (4.5-11.0)
[2022-03-07 07:34] LABS: ALANINE AMINOTRANSFERASE 27 U/L (12-78); ALBUMIN 2.7 G/DL (3.4-5.0); ALBUMIN/GLOBULIN RATIO 0.8 (1.1-1.5); ALKALINE PHOSPHATASE 69 IU/L (46-116); ANION GAP 5 (8-16); ASPARTATE AMINO TRANSFERASE 24 U/L (10-37); BILIRUBIN,TOTAL 0.4 MG/DL (0.1-1.0); BLOOD UREA NITROGEN 9 MG/DL (7-18); BUN/CREATININE RATIO 12.3 (6.6-38.0); CALCIUM 8.6 MG/DL (8.5-10.1); CHLORIDE 96 MMOL/L (99-107); CREATININE 0.73 MG/DL (0.40-0.90); GLUCOSE 82 MG/DL (70-104); MAGNESIUM 2.1 MG/DL (1.5-2.4); PHOSPHORUS 3.3 MG/DL (2.3-4.5); POTASSIUM 4.1 MMOL/L (3.5-5.1); SODIUM 128 MMOL/L (135-145); TOTAL CARBON DIOXIDE 27.1 MMOL/L (24-32); TOTAL PROTEIN 6.2 G/DL (6.4-8.2); eGFR 77 ML/MIN
[2022-03-07] MEDS: K and/or MAG REPLACEMENT MC SCH ×2 (08:00→20:00)
[2022-03-07] MEDS: clopidogrel 75mg tablet PO SCH (08:25)
[2022-03-07] MEDS: aspirin 81mg tab.chew PO SCH (08:25)
[2022-03-07] MEDS: atorvastatin 20mg tablet PO SCH (08:25)
[2022-03-07] MEDS: lisinopril 10 MG tablet PO SCH (08:25)
[2022-03-07] MEDS: meropenem inj 500 MG in normal saline 100ml IV soln 100 ML IV SCH ×2 (08:36→20:16)
[2022-03-07 11:34] VITALS: BP 105/46
--- NOTE | 2022-03-07 13:29 | NUR ---
Message: [phone] Marlen Richardson. Lab called about stool. They said it is to formed to be C-diff. She is having BM about every hour. Thank you Capri BLAIR [phone] Transaction number: [id number]
--- NOTE | 2022-03-07 15:05 | NUR ---
PAGER ID: [phone] MESSAGE: [id number] Patient's son is here. Thanks Capri BLAIR Addendum: 03/07/22 at 1505 by CAPRI ART LVN Wrong patient
[2022-03-07 18:00] VITALS: BP 139/46
--- NOTE | 2022-03-07 18:41 | NUR ---
Problems reprioritized. Patient report given, questions answered & plan of care reviewed with Manuela AZEVEDO.
[2022-03-07] MEDS: Melatonin 3mg tablet PO SCH (20:16)
[2022-03-07 22:00] VITALS: BP 129/51
[2022-03-08 02:00] VITALS: BP 131/56
[2022-03-08 06:00] VITALS: BP 133/66
--- NOTE | 2022-03-08 06:23 | NUR ---
Problems reprioritized. Patient report given, questions answered & plan of care reviewed with Lorri AZEVEDO.
--- NOTE | 2022-03-08 06:39 | NUR ---
Patient in room PCU 3011. I have received report from Ally and had the opportunity to ask questions and assume patient care.
[2022-03-08 06:52] LABS: BASOPHILS # (AUTO) 0.1 X10'3 (0-0.2); BASOPHILS % (AUTO) 0.7 % (0-1); EOSINOPHILS # (AUTO) 0.3 X10'3 (0-0.9); EOSINOPHILS % (AUTO) 2.3 % (0-6); HEMATOCRIT 36.9 % (35.0-45.0); HEMOGLOBIN 12.2 g/dl (12.0-16.0); LYMPHOCYTES # (AUTO) 2.3 X10'3 (1.1-4.8); LYMPHOCYTES % (AUTO) 19.9 % (21-51); MEAN CORPUSCULAR HEMOGLOBIN 29.2 PG (27.0-31.0); MEAN CORPUSCULAR HGB CONC 32.9 g/dL (33.0-36.5); MEAN CORPUSCULAR VOLUME 88.6 FL (78-98); MEAN PLATELET VOLUME 7.3 FL (7.4-10.4); MONOCYTES # (AUTO) 1.4 X10'3 (0-0.9); MONOCYTES % (AUTO) 12.2 % (2-12); NEUTROPHILS # (AUTO) 7.4 X10'3 (1.8-7.7); NEUTROPHILS % (AUTO) 64.9 % (42-75); PLATELET COUNT 235 X10'3 (140-440); RED BLOOD COUNT 4.17 X10'6 (4.20-5.60); RED CELL DISTRIBUTION WIDTH 13.3 % (11.5-14.5); WHITE BLOOD COUNT 11.5 X10'3 (4.5-11.0)
--- NOTE | 2022-03-08 06:58 | NUR ---
Problems reprioritized. Patient report given, questions answered & plan of care reviewed with Lorri vallejo RN.
[2022-03-08 07:07] LABS: ALANINE AMINOTRANSFERASE 23 U/L (12-78); ALBUMIN 2.8 G/DL (3.4-5.0); ALBUMIN/GLOBULIN RATIO 0.8 (1.1-1.5); ALKALINE PHOSPHATASE 73 IU/L (46-116); ANION GAP 5 (8-16); ASPARTATE AMINO TRANSFERASE 26 U/L (10-37); BILIRUBIN,TOTAL 0.4 MG/DL (0.1-1.0); BLOOD UREA NITROGEN 6 MG/DL (7-18); CALCIUM 8.8 MG/DL (8.5-10.1); CHLORIDE 96 MMOL/L (99-107); GLUCOSE 81 MG/DL (70-104); MAGNESIUM 2.2 MG/DL (1.5-2.4); PHOSPHORUS 3.2 MG/DL (2.3-4.5); POTASSIUM 4.3 MMOL/L (3.5-5.1); SODIUM 127 MMOL/L (135-145); TOTAL CARBON DIOXIDE 25.7 MMOL/L (24-32); TOTAL PROTEIN 6.4 G/DL (6.4-8.2); eGFR > 90 ML/MIN
[2022-03-08] MEDS: K and/or MAG REPLACEMENT MC SCH ×2 (07:16→19:41)
[2022-03-08] MEDS: clopidogrel 75mg tablet PO SCH (07:30)
[2022-03-08] MEDS: meropenem inj 500 MG in normal saline 100ml IV soln 100 ML IV SCH ×2 (07:30→21:11)
[2022-03-08] MEDS: aspirin 81mg tab.chew PO SCH (07:31)
[2022-03-08] MEDS: lisinopril 10 MG tablet PO SCH (07:31)
[2022-03-08] MEDS: atorvastatin 20mg tablet PO SCH (07:31)
[2022-03-08 11:00] VITALS: BP 123/52
[2022-03-08 15:00] VITALS: BP 119/59
[2022-03-08 18:00] VITALS: BP 112/70
--- NOTE | 2022-03-08 18:21 | NUR ---
Problems reprioritized. Patient report given, questions answered & plan of care reviewed with JOLLY Novak.
[2022-03-08] MEDS: Melatonin 3mg tablet PO SCH (21:11)
[2022-03-08 22:00] VITALS: BP 120/75
[2022-03-09 02:00] VITALS: BP 128/79
[2022-03-09 06:29] LABS: BASOPHILS # (AUTO) 0.1 X10'3 (0-0.2); BASOPHILS % (AUTO) 0.6 % (0-1); EOSINOPHILS # (AUTO) 0.3 X10'3 (0-0.9); EOSINOPHILS % (AUTO) 2.4 % (0-6); HEMATOCRIT 37.3 % (35.0-45.0); HEMOGLOBIN 12.4 g/dl (12.0-16.0); LYMPHOCYTES # (AUTO) 2.6 X10'3 (1.1-4.8); LYMPHOCYTES % (AUTO) 21.8 % (21-51); MEAN CORPUSCULAR HEMOGLOBIN 29.1 PG (27.0-31.0); MEAN CORPUSCULAR HGB CONC 33.3 g/dL (33.0-36.5); MEAN CORPUSCULAR VOLUME 87.4 FL (78-98); MEAN PLATELET VOLUME 7.5 FL (7.4-10.4); MONOCYTES # (AUTO) 1.3 X10'3 (0-0.9); MONOCYTES % (AUTO) 10.6 % (2-12); NEUTROPHILS # (AUTO) 7.8 X10'3 (1.8-7.7); NEUTROPHILS % (AUTO) 64.6 % (42-75); PLATELET COUNT 267 X10'3 (140-440); RED BLOOD COUNT 4.28 X10'6 (4.20-5.60); RED CELL DISTRIBUTION WIDTH 13.6 % (11.5-14.5); WHITE BLOOD COUNT 12.1 X10'3 (4.5-11.0)
[2022-03-09 06:30] VITALS: BP 139/55
[2022-03-09 06:30] LABS: ALANINE AMINOTRANSFERASE 23 U/L (12-78); ALBUMIN 3.2 G/DL (3.4-5.0); ALBUMIN/GLOBULIN RATIO 0.8 (1.1-1.5); ALKALINE PHOSPHATASE 80 IU/L (46-116); ANION GAP 5 (8-16); ASPARTATE AMINO TRANSFERASE 26 U/L (10-37); BILIRUBIN,TOTAL 0.5 MG/DL (0.1-1.0); BLOOD UREA NITROGEN 6 MG/DL (7-18); BUN/CREATININE RATIO 8.2 (6.6-38.0); CALCIUM 9.2 MG/DL (8.5-10.1); CHLORIDE 95 MMOL/L (99-107); CREATININE 0.73 MG/DL (0.40-0.90); GLUCOSE 87 MG/DL (70-104); MAGNESIUM 2.1 MG/DL (1.5-2.4); PHOSPHORUS 3.3 MG/DL (2.3-4.5); POTASSIUM 4.4 MMOL/L (3.5-5.1); SODIUM 127 MMOL/L (135-145); TOTAL CARBON DIOXIDE 26.8 MMOL/L (24-32); eGFR 77 ML/MIN
--- NOTE | 2022-03-09 07:09 | NUR ---
Problems reprioritized. Patient report given, questions answered & plan of care reviewed with Leatha AZEVEDO.
[2022-03-09] MEDS: clopidogrel 75mg tablet PO SCH (07:14)
[2022-03-09] MEDS: atorvastatin 20mg tablet PO SCH (07:14)
[2022-03-09] MEDS: aspirin 81mg tab.chew PO SCH (07:14)
[2022-03-09] MEDS: lisinopril 10 MG tablet PO SCH (07:15)
[2022-03-09] MEDS: meropenem inj 500 MG in normal saline 100ml IV soln 100 ML IV SCH ×2 (07:15→20:55)
[2022-03-09] MEDS: K and/or MAG REPLACEMENT MC SCH ×2 (08:00→19:31)
[2022-03-09 10:00] VITALS: BP 104/54
--- NOTE | 2022-03-09 11:49 | NUR ---
Reassessment: Pt continues on pureed diet with thin liquids per ST recs and PO intake has slightly improved since last RD assessment (03/06), documented with average 45% PO intake meeting 94% estimated energy needs and 65% estimated protein needs. ONS still pending physician approval in EMR. See recommended nutrition interventions below that were d/w dietary. LBM 03/08. Will continue to follow and monitor need for further nutrition intervention. Recommendations: 1. Continue pureed diet with thin liquids per ST recs; advance to regular diet as appropriate; assist with meals 2. Ensure Plus HP BIDBD, pending physician approval in EMR; kathe PEARSON, ponce MARROQUIN 3. Routine bowel care 4. Scaled wt this admit; subsequent weekly scaled wts Addendum: 03/09/22 at [address] Amended: Links added.
[2022-03-09 14:00] VITALS: BP 106/62
[2022-03-09 18:00] VITALS: BP 116/63
--- NOTE | 2022-03-09 18:00 | NUR ---
Patient in room PCU 3011. I have received report from Leatha AZEVEDO and had the opportunity to ask questions and assume patient care.
[2022-03-09] MEDS: Melatonin 3mg tablet PO SCH (20:55)
[2022-03-09 22:00] VITALS: BP 120/68
[2022-03-10 02:00] VITALS: BP 118/65
[2022-03-10 07:00] VITALS: BP 135/61
--- NOTE | 2022-03-10 07:19 | NUR ---
Problems reprioritized. Patient report given, questions answered & plan of care reviewed with Tra RN.
[2022-03-10] MEDS: K and/or MAG REPLACEMENT MC SCH ×2 (08:00→19:01)
[2022-03-10] MEDS: meropenem inj 500 MG in normal saline 100ml IV soln 100 ML IV SCH ×2 (08:24→20:34)
[2022-03-10] MEDS: aspirin 81mg tab.chew PO SCH (08:25)
[2022-03-10] MEDS: clopidogrel 75mg tablet PO SCH (08:26)
[2022-03-10] MEDS: lisinopril 10 MG tablet PO SCH (08:26)
[2022-03-10] MEDS: atorvastatin 20mg tablet PO SCH (08:26)
[2022-03-10 11:00] VITALS: BP 117/60
[2022-03-10 15:00] VITALS: BP 123/58
[2022-03-10] MEDS: Melatonin 3mg tablet PO SCH (20:33)
[2022-03-10 22:00] VITALS: BP 119/52
[2022-03-11 02:00] VITALS: BP 110/52
[2022-03-11 06:00] VITALS: BP 118/55
[2022-03-11] MEDS: K and/or MAG REPLACEMENT MC SCH ×2 (08:00→20:00)
[2022-03-11] MEDS: lisinopril 10 MG tablet PO SCH (09:27)
[2022-03-11] MEDS: atorvastatin 20mg tablet PO SCH (09:28)
[2022-03-11] MEDS: clopidogrel 75mg tablet PO SCH (09:28)
[2022-03-11] MEDS: aspirin 81mg tab.chew PO SCH (09:28)
[2022-03-11] MEDS: meropenem inj 500 MG in normal saline 100ml IV soln 100 ML IV SCH ×2 (09:29→21:23)
[2022-03-11 11:00] VITALS: BP 152/48
--- NOTE | 2022-03-11 18:03 | NUR ---
I spoke with point of care specialist Darlene. Her number is [phone]. They will be able to come get her tomorrow around lunch time.
[2022-03-11] MEDS: Melatonin 3mg tablet PO SCH (21:22)
[2022-03-11 22:00] VITALS: BP 129/73
[2022-03-12 02:00] VITALS: BP 107/57
[2022-03-12 06:00] VITALS: BP 122/81
[2022-03-12 07:50] LABS: BASOPHILS # (AUTO) 0.1 X10'3 (0-0.2); EOSINOPHILS # (AUTO) 0.3 X10'3 (0-0.9); EOSINOPHILS % (AUTO) 2.2 % (0-6); HEMATOCRIT 35.8 % (35.0-45.0); HEMOGLOBIN 12.2 g/dl (12.0-16.0); LYMPHOCYTES # (AUTO) 2.8 X10'3 (1.1-4.8); MEAN CORPUSCULAR HEMOGLOBIN 29.5 PG (27.0-31.0); MEAN CORPUSCULAR HGB CONC 34.1 g/dL (33.0-36.5); MEAN CORPUSCULAR VOLUME 86.6 FL (78-98); MEAN PLATELET VOLUME 7.2 FL (7.4-10.4); MONOCYTES # (AUTO) 1.4 X10'3 (0-0.9); MONOCYTES % (AUTO) 11.8 % (2-12); NEUTROPHILS # (AUTO) 7.1 X10'3 (1.8-7.7); PLATELET COUNT 314 X10'3 (140-440); RED BLOOD COUNT 4.13 X10'6 (4.20-5.60); RED CELL DISTRIBUTION WIDTH 13.5 % (11.5-14.5); WHITE BLOOD COUNT 11.6 X10'3 (4.5-11.0)
[2022-03-12 07:57] LABS: ALBUMIN 3.1 G/DL (3.4-5.0); ANION GAP 2 (8-16); BLOOD UREA NITROGEN 6 MG/DL (7-18); BUN/CREATININE RATIO 7.9 (6.6-38.0); CALCIUM 8.7 MG/DL (8.5-10.1); CHLORIDE 94 MMOL/L (99-107); CREATININE 0.76 MG/DL (0.40-0.90); GLUCOSE 94 MG/DL (70-104); POTASSIUM 4.6 MMOL/L (3.5-5.1); SODIUM 126 MMOL/L (135-145); TOTAL CARBON DIOXIDE 29.7 MMOL/L (24-32); eGFR 73 ML/MIN
[2022-03-12] MEDS: K and/or MAG REPLACEMENT MC SCH (08:00)
[2022-03-12] MEDS: lisinopril 10 MG tablet PO SCH (09:25)
[2022-03-12] MEDS: clopidogrel 75mg tablet PO SCH (09:25)
[2022-03-12] MEDS: meropenem inj 500 MG in normal saline 100ml IV soln 100 ML IV SCH (09:25)
[2022-03-12] MEDS: atorvastatin 20mg tablet PO SCH (09:26)
[2022-03-12] MEDS: aspirin 81mg tab.chew PO SCH (09:26)
[2022-03-12 11:00] VITALS: BP 115/57
== END 2022-03-12 15:20 | disposition home health service (06) | DRG 871 ==
LOC: ER 00:31 → ED HOLD 03:11 → PCU 3S 05:35
PROVIDERS: ADMIT Internal Medicine; ATTEND Internal Medicine
PROC: BW211ZZ Computerized Tomography (CT Scan) of Abdomen and Pelvis using Low Osmolar Contrast (ICD-10-PCS; principal; 2022-03-03)
DX: A41.51 Sepsis due to Escherichia coli [E. coli] (principal); G93.41 Metabolic encephalopathy; E87.1 Hypo-osmolality and hyponatremia; N39.0 Urinary tract infection, site not specified; E78.00 Pure hypercholesterolemia, unspecified; Z66 Do not resuscitate; E86.9 Volume depletion, unspecified; F03.90 Unspecified dementia, unspecified severity, without behavioral disturbance, psychotic disturbance, mood disturbance, and anxiety; I10 Essential (primary) hypertension; I25.10 Atherosclerotic heart disease of native coronary artery without angina pectoris; J44.9 Chronic obstructive pulmonary disease, unspecified; Z79.02 Long term (current) use of antithrombotics/antiplatelets; Z88.1 Allergy status to other antibiotic agents; Z99.81 Dependence on supplemental oxygen; Z86.73 Personal history of transient ischemic attack (TIA), and cerebral infarction without residual deficits
CPT/HCPCS: 36415; 71045; 74177; 80048; 80053; 81001; 83605; 83735; 84100; 84145; 84443; 85007; 85025; 87040; 87077; 87081; 87088; 87186; 92508; 92616; 93005; 96365; 97110; 97116; 97161; 97530; 97535; 99285; A4353; A4615; A5200; A6213; A6250; A6402; G0378; J0360; J1940; J1956; J2185; J2543; J3490; J7030; J7040; Q9967